=== PATIENT | male | born 1975 | race Caucasian/White ===

== ENCOUNTER 2017-05-09 14:47 | Emergency (ER) | payer OTHER ==
[~2017-05-09] VITALS: Ht 170.2 cm; Wt 54.5 kg
[2017-05-09 15:02] LABS: GLUCOSE,POINT OF CARE 77 MG/DL (70-110)
[2017-05-09] MEDS ORDERED: RISP1 PO (15:16)
[2017-05-09] MEDS ORDERED: BENZ1TAB10 PO (15:16)
[2017-05-09 17:20] VITALS: BP 124/81
== END 2017-05-09 17:26 | disposition home or self-care (01) ==
LOC: EEVIPCON 14:49 → EMS 14:49
DX: S63.501A Unspecified sprain of right wrist, initial encounter (principal); M79.671 Pain in right foot; F17.210 Nicotine dependence, cigarettes, uncomplicated; W22.8XXA Striking against or struck by other objects, initial encounter; Y93.89 Activity, other specified; Y92.89 Other specified places as the place of occurrence of the external cause; Y99.8 Other external cause status
CPT/HCPCS: 82962; 99284